=== PATIENT | male | born 1960 | race Caucasian/White ===

== ENCOUNTER 2020-06-29 10:07 | Day surgery (SDC) | payer BC ==
[~2020-06-29 10:07] MED LIST: Lactated Ringers 1,000 ML IV SCH
[2020-06-29] MEDS ORDERED: Propofol 200 MG/20 ML SDV ONE ×2 (11:29→12:36)
[2020-06-29] MEDS ORDERED: Lidocaine 2% 5 ML SDV ONE (11:35)
--- NOTE | 2020-06-29 11:45 | PCM.PREANE ---
Preanesthetic Assessment - Anesthesia/Transfusion/Family Hx Anesthesia History: Prior Anesthesia Without Reaction Family History of Anesthesia Reaction: No Transfusion History: Prior Transfusion Without Reaction - Review of Systems General: No Symptoms Pulmonary: No Symptoms Cardiovascular: No Symptoms Gastrointestinal: No Symptoms Neurological: No Symptoms Other: Reports: None - Physical Assessment NPO Status Date: 06/28/20 Height: 5 ft 8 in Weight: 81.647 kg ASA Class: 3 Mental Status: Alert & Oriented x3 Airway Class: Mallampati = 2 Dentition: Reports: Normal Dentition ROM/Head Extension: Full Lungs: Clear to Auscultation, Normal Respiratory Effort Cardiovascular: Regular Rate, Regular Rhythm - Allergies Allergies/Adverse Reactions: Allergies Allergy/AdvReac Type Severity Reaction Status Date / Time No Known Allergies Allergy Verified 06/26/20 12:55 - Blood Blood Available: No - Anesthesia Plan Pre-Op Medication Ordered: None - Acknowledgements Anesthesia Type Planned: General Anesthesia (tiva) Pt an Appropriate Candidate for the Planned Anesthesia: Yes Alternatives and Risks of Anesthesia Discussed w Pt/Guardian: Yes Pt/Guardian Understands and Agrees with Anesthesia Plan: Yes Additional Comments: PMH: PE with pulm embolectomy in fall, tricuspid valve repair at the same time, hx of parox afib, PLAN: tiva PreAnesthesia Questionnaire HEENT History: Reports: None Cardiovascular History: Reports: Afib, High Cholesterol, Other (See Below) Other Cardiovascular History: hx of Paroxysmal AFib- "not very often anymore", HX of right ventricular failure- had Tricuspid valve repair Respiratory History: Reports: COPD, PE Other Respiratory History: states "mild COPD", use Ventolin inhaler every other day but thinks "it doesn't do anything" Gastrointestinal History: Reports: Colon Polyp Hematologic History: Reports: Anticoagulation Therapy Other Hematologic History: takes Eliquis- stopped 06/22/20, will start Lovonox 06/26/20 - Past Surgical History Head Surgeries/Procedures: Reports: None HEENT Surgical History: Reports: Tonsillectomy Cardiovascular Surgical History: Reports: Other (See Below) Other Cardiovascular Surgeries/Procedures: Tricuspid valve repair Respiratory Surgical History: Reports: Other (See Below) Other Respiratory Surgeries/Procedures: hx of Pulmonary embolectony- 5 clots removed GI Surgical History: Reports: Colonoscopy - SUBSTANCE USE Tobacco Use Status *Q: Former Tobacco User Tobacco Use Within Last Twelve Months: No Recreational Drug Use History: No - HOME MEDS Home Medications: Home Meds Albuterol [Ventolin HFA] 1 puff INH ASDIRECTED PRN 06/26/20 [History] Apixaban [Eliquis] 5 mg PO BID 06/26/20 [History] atorvaSTATin Calcium [Atorvastatin Calcium] 40 mg PO BEDTIME 06/26/20 [History] - CURRENT (IN HOUSE) MEDS Current Meds: Current Medications Lactated Ringer's (Ringers, Lactated) 1,000 mls @ 125 mls/hr IV ASDIRECTED KEN Discontinued Medications Lidocaine (Xylocaine-Mpf 2%) Confirm Administered Dose 5 ml .ROUTE .STK-MED ONE Stop: 06/29/20 11:36 Propofol (Diprivan 20 Ml) Confirm Administered Dose 400 mg .ROUTE .STK-MED ONE Stop: 06/29/20 11:30
[2020-06-29] MEDS ORDERED: Lactated Ringers 1,000 ML IV SCH (13:00)
--- NOTE | 2020-06-29 13:01 | PCM.OPNOTE ---
- General Post-Op/Procedure Note Date of Surgery/Procedure: 06/29/20 Operative Procedure(s): Colonoscopy with snare, distal transverse colon polypectomy and cold sigmoid colon polypectomy Pre Op Diagnosis: Personal history of colon polyps Post-Op Diagnosis: Transverse colon and sigmoid polyps Anesthesia Technique: MAC (ASA III) Primary Surgeon: Santana Chan Condition: Good Free Text/Narrative:: DICTATION [id number] CPT CODE 72735, 20784
--- NOTE | 2020-06-29 13:47 | PCM.POSTAN ---
POST ANESTHESIA ASSESSMENT - MENTAL STATUS Mental Status: Alert, Oriented - VITAL SIGNS Vital Signs: Last Vital Signs Temp Pulse 70 06/29/20 13:18 Resp 15 06/29/20 13:18 BP 116/77 06/29/20 13:18 Pulse Ox 96 06/29/20 13:18 - RESPIRATORY Respiratory Status: Respiratory Rate WNL, Airway Patent, O2 Saturation Stable - CARDIOVASCULAR CV Status: Pulse Rate WNL, Blood Pressure Stable - GASTROINTESTINAL GI Status: No Symptoms - POST OP HYDRATION Hydration Status: Adequate & Stable
--- NOTE | 2020-06-29 13:47 | PCM48HPAN ---
Post Anesthesia Note - EVALUATION WITHIN 48HRS OF ANESTHETIC Vital Signs in Normal Range: Yes Patient Participated in Evaluation: Yes Respiratory Function Stable: Yes Airway Patent: Yes Cardiovascular Function Stable: Yes Hydration Status Stable: Yes Pain Control Satisfactory: Yes Nausea and Vomiting Control Satisfactory: Yes Mental Status Recovered: Yes Vital Signs: Last Vital Signs Temp Pulse 70 06/29/20 13:18 Resp 15 06/29/20 13:18 BP 116/77 06/29/20 13:18 Pulse Ox 96 06/29/20 13:18
--- NOTE | 2020-06-29 14:07 | OR ---
SURGEON: Santana Chan M.D. DATE OF PROCEDURE: 06/29/2020 OPERATION PERFORMED: Colonoscopy with snare distal transverse colon polypectomy and cold sigmoid colon polypectomy. PRIMARY SURGEON: Santana Chan M.D. ANESTHESIA: MAC. ASA CLASSIFICATION: III. PREOPERATIVE DIAGNOSIS: Personal history of colon polyps. POSTOPERATIVE DIAGNOSES: Distal transverse colon polyps and sigmoid colon polyps. DESCRIPTION OF PROCEDURE: The patient was taken to the endoscopy room and positioned on the endoscopy table in the left lateral decubitus position. Time-out was called for appropriate identification of the patient and procedure. Monitored anesthesia care was provided. The colonoscope was inserted into the rectum and advanced without difficulty to the cecum. The cecum was identified by internal landmarks and external pressure. Despite multiple maneuvers, the colonoscope could not be retroflexed in the cecum. The colonoscope was therefore slowly withdrawn. The cecum, ascending colon, proximal, and mid transverse colon showed no tumors, polyps, or diverticular changes. Two polyps were encountered in the distal transverse colon, and these were removed as one specimen with snare polypectomy and sent for histologic analysis. The splenic flexure and descending colon showed no tumors or polyps. The patient then had 2 small polyps adjacent to each other in the sigmoid colon. These were removed with multiple bites of the cold biopsy forceps and sent as a single specimen. The colonoscope was further withdrawn to the rectum and retroflexed to visualize the anal orifice from above. Again, no tumors or polyps were seen and there were no acute hemorrhoidal changes. The colonoscope was then straightened, the rectum aspirated, and then colonoscope removed. The patient tolerated the procedure well and was taken to recovery room in satisfactory condition. FRANNIE / STEVEN /[id number]
== END 2020-06-29 14:00 | disposition home or self-care (01) ==
LOC: MW.SDS 10:07
PROVIDERS: ATTEND Surgery
DX: D12.5 Benign neoplasm of sigmoid colon (principal); D12.3 Benign neoplasm of transverse colon; I25.10 Atherosclerotic heart disease of native coronary artery without angina pectoris; E78.5 Hyperlipidemia, unspecified; I50.810 Right heart failure, unspecified; I48.0 Paroxysmal atrial fibrillation; J44.9 Chronic obstructive pulmonary disease, unspecified; Z87.891 Personal history of nicotine dependence; Z86.711 Personal history of pulmonary embolism; Z79.01 Long term (current) use of anticoagulants; Z79.899 Other long term (current) drug therapy; Z98.890 Other specified postprocedural states
CPT/HCPCS: 45380; 45385; 88305; J2704; J7120